=== PATIENT | male | born 1945 | race Caucasian/White ===

== ENCOUNTER 2019-07-07 18:40 | Emergency (ER) | payer BC, MEDICAID, MEDICARE ==
[2019-07-07 19:10] VITALS: BP 79/44; TEMP 99.3
[2019-07-07 19:51] LABS: Appearance,Urine Cloudy (Clear); Bilirubin,Urine Negative (Negative); Blood,Urine Small (Negative); Color,Urine Yellow; Glucose,Urine (UA) Negative (Negative); Ketones,Urine Negative (Negative); Leukocyte Esterase,Urine Large (Negative); Mucus,Urine Rare /hpf; Nitrite,Urine Positive (Negative); PH, Urine 6.5 (5.0-8.0); Protein,Urine 1+ (Negative); RBC,Urine 33 /hpf (0-5); Specific Gravity,Urine 1.016 (1.001-1.035); Urobilinogen,Urine <2.0 mg/dL (<2.0)
[2019-07-07] MEDS ORDERED: NITROFURANTOIN MONOHYD/M-CRYST 100 MG CAP PO STA (20:20)
[2019-07-07] MEDS ORDERED: cefTRIAXone 250 MG VIAL IM STA (20:20)
--- NOTE | 2019-07-07 20:21 | ED ---
Male Urogenital HPI - General Chief complaint: Urogenital Stated complaint: catheter complications Time Seen by Provider: 07/07/19 18:47 Source: patient, RN notes reviewed, old records reviewed Mode of arrival: ambulatory Limitations: no limitations - History of Present Illness Initial comments: This is a 74-year-old male the ER for evaluation. Patient is DO NOT RESUSCITATE presented for evaluation regarding inability urinate, Aguirre catheter dysfunction. Patient is also having occasional abdominal pain. No recent travel history no sick contacts. Family oozing IV per EMS transfer. Patient recently had fully placed. Patient is otherwise without significant complaint. - Related Data Home Medications Medication Instructions Recorded Confirmed LORazepam [Ativan] 0.5 mg PO Q6H PRN 07/07/19 07/07/19 Ondansetron HCl [Zofran] 8 mg PO TID PRN 07/07/19 07/07/19 Previous Rx's Medication Instructions Recorded Nitrofurantoin Monohyd/M-Cryst 100 mg PO Q12HR #14 cap 07/07/19 [Macrobid] Allergies Allergy/AdvReac Type Severity Reaction Status Date / Time hydrocodone AdvReac Nausea & Verified 07/07/19 19:10 Vomiting indomethacin [From Indocin] AdvReac Nausea & Verified 07/07/19 19:10 Vomiting ofloxacin [From Floxin] AdvReac Nausea & Verified 07/07/19 19:10 Vomiting Review of Systems ROS Statement: Those systems with pertinent positive or pertinent negative responses have been documented in the HPI. ROS Other: All systems not noted in ROS Statement are negative. 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 History of Any Multi-Drug Resistant Organisms: None Reported Past Surgical History: Orthopedic Surgery, Tonsillectomy Additional Past Surgical History / Comment(s): melanoma removal, ryan in femer Past Psychological History: No Psychological Hx Reported Smoking Status: Never smoker Past Alcohol Use History: None Reported Past Drug Use History: None Reported General Exam Limitations: no limitations Course Vital Signs 07/07/19 07/07/19 19:05 21:03 Temperature 99.3 F Pulse Rate 122 H 104 H Respiratory 18 16 Rate Blood Pressure 79/44 79/44 O2 Sat by Pulse 97 100 Oximetry Medical Decision Making - Medical Decision Making 74 male the ER with Aguirre dysfunction, patient has positive UTI Aguirre is replaced, working appropriately and patient can be discharged - Lab Data Lab Results 07/07/19 Range/Units 19:40 Urine Color Yellow Urine Appearance Cloudy (Clear) Urine pH 6.5 (5.0-8.0) Ur Specific Josephine 1.016 (1.001-1.035) Urine Protein 1+ H (Negative) Urine Glucose (UA) Negative (Negative) Urine Ketones Negative (Negative) Urine Blood Small H (Negative) Urine Nitrite Positive (Negative) Urine Bilirubin Negative (Negative) Urine Urobilinogen <2.0 (<2.0) mg/dL Ur Leukocyte Esterase Large H (Negative) Urine RBC 33 H (0-5) /hpf Urine WBC >182 H (0-5) /hpf Urine WBC Clumps Many H (None) /hpf Urine Mucus Rare H (None) /hpf Disposition Clinical Impression: UTI (urinary tract infection), Malfunction of Aguirre catheter Disposition: HOME SELF-CARE Instructions (If sedation given, give patient instructions): Urinary Tract Infection in Men (ED) Prescriptions: Nitrofurantoin Monohyd/M-Cryst [Macrobid] 100 mg PO Q12HR #14 cap Is patient prescribed a controlled substance at d/c from ED?: No Referrals: Everardo Pelayo MD [Primary Care Provider] - 1-2 days
[2019-07-07 21:05] VITALS: PULSE 104; RESP 16
== END 2019-07-07 22:43 | disposition home or self-care (01) ==
LOC: EC 18:40
DX: T83.511A Infection and inflammatory reaction due to indwelling urethral catheter, initial encounter (principal); Z85.46 Personal history of malignant neoplasm of prostate; Z85.820 Personal history of malignant melanoma of skin; Z88.5 Allergy status to narcotic agent; Z88.6 Allergy status to analgesic agent; Z88.1 Allergy status to other antibiotic agents
CPT/HCPCS: 51798; 81001; 87086; 87077; 87186; 99284; 51702; 96372; J0696